=== PATIENT | female | born 1995 | race Caucasian/White ===

== ENCOUNTER → 2019-05-03 19:40 | Observation (INO) ==
[2019-05-03 17:41] LABS: Bilirubin,Urine Negative (Negative); Blood,Urine Negative (Negative); Clarity,Urine Cloudy (Clear); Color,Urine Yellow (Yellow); Glucose,Urine (UA) Normal (Normal); Ketones,Urine Negative (Negative); Leukocyte Esterase,Urine Negative (Negative); Nitrite,Urine Negative (Negative); Protein,Urine Trace mg/dL (Neg-Trace); Specific Gravity,Urine 1.028 (1.010-1.025); Urobilinogen,Urine Normal (Normal)
[2019-05-03 17:43] LABS: Bacteria,Urine Many per hpf (None-Few); Hyaline Casts,Urine Few per lpf (None-Few); Squamous Epithelial Cell,Urine Many per lpf (None-Few)
[2019-05-03 17:52] LABS: Calcium Oxalate Crystals,Urine Present
[2019-05-03 17:53] LABS: RBC,Urine 0-3 per hpf (0-3)
[2019-05-03 17:57] LABS: Amphetamine Screen,Urine Negative ng/mL (Cutoff=1000); Barbiturate Screen,Urine Negative ng/mL (Cutoff=200); Benzodiazepines Screen,Urine Negative ng/mL (Cutoff=200); Cannabinoid Screen,Urine Positive ng/mL (Cutoff = 50); Cocaine Screen,Urine Negative ng/mL (Cutoff= 300); Opiate Screen,Urine Negative ng/mL (Cutoff=300); Phencyclidine Screen,Urine Negative ng/mL (Cutoff=25)
[~2019-05-03 19:40] MED LIST: FLU Vac QV 19-20 (6Month+)/PF 0.5 ML SYRINGE IM ONE; Ringers Solution, Lactated 1,000 ML IVC ONE
== END | disposition home or self-care (01) ==
LOC: 1NENULAB
PROVIDERS: ADMIT Advanced Practice Midwife; ATTEND Advanced Practice Midwife

== ENCOUNTER → 2019-07-24 13:34 | Observation (INO) ==
[2019-07-24 12:37] LABS: Basophils % 0.2 %; Eosinophils % 0.4 %; Hematocrit 35.9 % (35.3-44.9); Hemoglobin 11.2 g/dL (11.5-15.4); Immature Granulocytes % 0.5 % (0-4); Lymphocytes # 2.6 K/mcL (0.6-4.6); Lymphocytes % 24.1 %; Mean Corpuscular HGB Conc 31.2 g/dL (31.6-35.5); Mean Corpuscular Hemoglobin 25.4 pg (28.0-33.3); Mean Corpuscular Volume 81.4 fL (83.0-100.0); Mean Platelet Volume 10.4 fL (9.4-12.4); Monocytes # 0.7 K/mcL (0.0-1.3); Neutrophils # 7.5 K/mcL (1.6-8.9); Platelet Count 258 K/mcL (140-400); Red Blood Count 4.41 M/mcL (3.82-4.97); Red Cell Distribution Width 15.2 % (11.5-14.5); Segmented Neutrophils % 68.8 %; White Blood Count 10.9 K/mcL (4.3-11.1)
[2019-07-24 12:47] LABS: Amphetamine Screen,Urine Negative ng/mL (Cutoff=1000); Barbiturate Screen,Urine Negative ng/mL (Cutoff=200); Benzodiazepines Screen,Urine Negative ng/mL (Cutoff=200); Cannabinoid Screen,Urine Negative ng/mL (Cutoff = 50); Cocaine Screen,Urine Negative ng/mL (Cutoff= 300); Creatinine,Urine 96 mg/dL; Opiate Screen,Urine Negative ng/mL (Cutoff=300); Phencyclidine Screen,Urine Negative ng/mL (Cutoff=25); Protein/Creatinine Ratio,Urine 0.23 mg/mg (0.00-0.20)
[2019-07-24 12:56] LABS: Alanine Aminotransferase 7 Units/L (7-52); Aspartate Amino Transferase 13 Units/L (13-39); BUN/Creatinine Ratio 15 (6-26); Blood Urea Nitrogen 9 mg/dL (6-20); Lactate Dehydrogenase 162 Units/L (140-271); Uric Acid 5.4 mg/dL (2.3-7.6); eGFR For African Americans > 60 (> 60); eGFR For Non-African Americans > 60 (> 60)
== END | disposition home or self-care (01) ==
LOC: 1NENULAB
PROVIDERS: ADMIT Advanced Practice Midwife; ATTEND Advanced Practice Midwife

== ENCOUNTER → 2019-08-02 20:33 | Observation (INO) ==
[~2019-08-02 20:33] MED LIST changes: +EPHEDrine 50 MG/ML VIAL IVP PRN; +Epidural Premix (fent/bupiv) 110 ML EP SCH; -FLU Vac QV 19-20 (6Month+)/PF 0.5 ML SYRINGE IM ONE; -Ringers Solution, Lactated 1,000 ML IVC ONE
== END | disposition home or self-care (01) ==
LOC: 1NENULAB
PROVIDERS: ADMIT Advanced Practice Midwife; ATTEND Advanced Practice Midwife

== ENCOUNTER 2019-08-07 04:00 | Inpatient (IN) ==
[2019-08-07] MEDS ORDERED: Lidocaine 1% 20 ML MDV INFILT PRN (04:34)
[2019-08-07] MEDS ORDERED: Famotidine 20 MG/2 ML VIAL IVP PRN (04:34)
[2019-08-07] MEDS ORDERED: miSOPROStoL 25 MCG TABLET VG PRN (04:34)
[2019-08-07] MEDS ORDERED: Naloxone 0.4 MG/ML INJ IVP PRN ×2 (04:34→09:33)
[2019-08-07] MEDS ORDERED: Metoclopramide 10 MG/2 ML VIAL IVP PRN (04:34)
[2019-08-07] MEDS ORDERED: Ondansetron 4 MG/2 ML VIAL IVP PRN (04:34)
[2019-08-07 05:06] LABS: Basophils % 0.2 %; Eosinophils % 0.4 %; Hematocrit 34.1 % (35.3-44.9); Hemoglobin 10.9 g/dL (11.5-15.4); Immature Granulocytes % 0.5 % (0-4); Lymphocytes # 2.8 K/mcL (0.6-4.6); Lymphocytes % 25.5 %; Mean Corpuscular Hemoglobin 25.9 pg (28.0-33.3); Mean Platelet Volume 10.7 fL (9.4-12.4); Monocytes # 0.6 K/mcL (0.0-1.3); Monocytes % 5.2 %; Neutrophils # 7.4 K/mcL (1.6-8.9); Platelet Count 263 K/mcL (140-400); Red Blood Count 4.21 M/mcL (3.82-4.97); Red Cell Distribution Width 15.4 % (11.5-14.5); Segmented Neutrophils % 68.2 %; White Blood Count 10.9 K/mcL (4.3-11.1)
[2019-08-07 05:13] LABS: Amphetamine Screen,Urine Negative ng/mL (Cutoff=1000); Barbiturate Screen,Urine Negative ng/mL (Cutoff=200); Benzodiazepines Screen,Urine Negative ng/mL (Cutoff=200); Cannabinoid Screen,Urine Negative ng/mL (Cutoff = 50); Cocaine Screen,Urine Negative ng/mL (Cutoff= 300); Opiate Screen,Urine Negative ng/mL (Cutoff=300); Phencyclidine Screen,Urine Negative ng/mL (Cutoff=25)
[2019-08-07 05:18] LABS: Alanine Aminotransferase 7 Units/L (7-52); Aspartate Amino Transferase 14 Units/L (13-39); BUN/Creatinine Ratio 15 (6-26); Blood Urea Nitrogen 10 mg/dL (6-20); Lactate Dehydrogenase 139 Units/L (140-271); Uric Acid 6.2 mg/dL (2.3-7.6); eGFR For African Americans > 60 (> 60); eGFR For Non-African Americans > 60 (> 60)
[2019-08-07 05:33] LABS: Protein/Creatinine Ratio,Urine 0.2 mg/mg (0.00-0.20)
[2019-08-07] MEDS ORDERED: miSOPROStoL 25 MCG TABLET PO STA (09:30)
[2019-08-07] MEDS: Ringers Solution, Lactated 1,000 ML IVC SCH ×3 (09:30→17:30)
[2019-08-07] MEDS ORDERED: *HR* FentaNYL (PF) 100 MCG/2 ML VIAL IVP PRN (09:33)
[2019-08-07] MEDS ORDERED: *HR* FentaNYL (PF) 100 MCG/2 ML VIAL ONE ×2 (12:01→21:12)
[2019-08-07] MEDS ORDERED: Bupivacaine-MPF 0.25% 10 ML VIAL ONE ×3 (12:01→21:12)
[2019-08-07] MEDS ORDERED: Epidural Premix (fent/bupiv) 110 ML EP ONE (12:02)
[2019-08-07] MEDS ORDERED: EPHEDrine 50 MG/ML VIAL IVP PRN (12:53)
[2019-08-07] MEDS ORDERED: Epidural Premix (fent/bupiv) 110 ML EP SCH (13:00)
[2019-08-07] MEDS ORDERED: Famotidine 20 MG/2 ML VIAL IVP ONE (13:50)
[2019-08-07] MEDS ORDERED: Oxytocin 20 units/ LR 1000 mL 20 UNIT/1,000 ML BAG IVC SCH (14:00)
[2019-08-07] MEDS ORDERED: Famotidine 20 MG/2 ML VIAL ONE (23:19)
[2019-08-07] MEDS ORDERED: Lidocaine/EPI 1:200k 2% PF 20 ML VIAL ONE (23:30)
[2019-08-07] MEDS ORDERED: *HR* Oxytocin 10 UNIT/ML VIAL IM ONE (23:31)
[2019-08-07] MEDS ORDERED: ceFAZolin 3,000 MG in 0.9 % Sodium Chloride 100 ML IVPB ONE (23:39)
[2019-08-07] MEDS ORDERED: Ringers Solution, Lactated 1,000 ML ONE (23:59)
[2019-08-08] MEDS ORDERED: *HR* Propofol 200 MG/20 ML VIAL IVP ONE (00:05)
[2019-08-08] MEDS ORDERED: *HR* Succinylcholine 200 MG/10 ML VIAL IVP ONE (00:06)
[2019-08-08] MEDS ORDERED: Ondansetron 4 MG/2 ML VIAL ONE (00:17)
[2019-08-08] MEDS ORDERED: Dexamethasone 4 MG/ML VIAL ONE (00:17)
[2019-08-08] MEDS ORDERED: *HR* Promethazine 25 MG/ML VIAL IVP PRN (00:24)
[2019-08-08] MEDS ORDERED: Acetaminophen IV 1,000 MG/100 ML INFUS..BTL IVPB STA (00:24)
[2019-08-08] MEDS ORDERED: *HR* HYDROmorphone 2 MG TABLET PO PRN (00:24)
[2019-08-08] MEDS ORDERED: *HR* Labetalol 20 MG/4 ML SYRINGE IVP PRN (00:24)
[2019-08-08] MEDS ORDERED: *HR* HYDROmorphone (PF) 1 MG/ML SYRINGE IVP PRN (00:24)
[2019-08-08] MEDS ORDERED: *HR* OxyCODONE Immed Rel 5 MG TABLET PO PRN (00:24)
[2019-08-08] MEDS ORDERED: *HR* Oxytocin 10 UNIT/ML VIAL IM ONE (00:45)
[2019-08-08] MEDS ORDERED: Ringers Solution, Lactated 1,000 ML ONE (00:45)
[2019-08-08] MEDS ORDERED: Diphenoxylate/Atropine 1 TAB TABLET PO ONE (01:11)
[2019-08-08] MEDS ORDERED: Simethicone 80 MG TAB.CHEW PO PRN (04:13)
[2019-08-08] MEDS ORDERED: Ondansetron 4 MG/2 ML VIAL IVP PRN (04:13)
[2019-08-08] MEDS ORDERED: Sennosides 8.6 MG TABLET PO PRN (04:13)
[2019-08-08] MEDS ORDERED: Oxytocin 20 units/ LR 1000 mL 20 UNIT/1,000 ML BAG IVC SCH (04:13)
[2019-08-08] MEDS ORDERED: Metoclopramide 10 MG/2 ML VIAL IVP PRN (04:13)
[2019-08-08] MEDS ORDERED: Ringers Solution, Lactated 1,000 ML IVC SCH (04:13)
[2019-08-08] MEDS ORDERED: Rho Immune Globulin 1,500 UNIT SYRINGE IM ONE (04:13)
[2019-08-08] MEDS: cephALEXin 500 MG CAPSULE PO SCH ×3 (08:06→20:28)
[2019-08-08] MEDS: metroNIDAZOLE 500 MG TABLET PO SCH ×3 (08:06→20:27)
[2019-08-08] MEDS: *HR* OxyCODONE/APAP 5/325 TABLET PO PRN ×4 (08:07→22:57)
[2019-08-08] MEDS ORDERED: NON-FORMULARY MEDICATION 1 EACH EACH (Prenatal Vits96/Iron Fum/Folic [Prenatal Tablet] 1 E PO SCH (09:00)
[2019-08-08 09:03] LABS: Basophils % 0.1 %; Hemoglobin 8.5 g/dL (11.5-15.4); Immature Granulocytes % 0.4 % (0-4); Lymphocytes # 1.8 K/mcL (0.6-4.6); Lymphocytes % 13.4 %; Mean Corpuscular HGB Conc 32.7 g/dL (31.6-35.5); Mean Corpuscular Hemoglobin 25.6 pg (28.0-33.3); Mean Corpuscular Volume 78.3 fL (83.0-100.0); Mean Platelet Volume 10.2 fL (9.4-12.4); Monocytes # 0.6 K/mcL (0.0-1.3); Monocytes % 4.8 %; Neutrophils # 10.6 K/mcL (1.6-8.9); Platelet Count 232 K/mcL (140-400); Red Blood Count 3.32 M/mcL (3.82-4.97); Red Cell Distribution Width 15.5 % (11.5-14.5); Segmented Neutrophils % 81.3 %
[2019-08-08] MEDS ORDERED: miSOPROStoL 100 MCG TABLET PO ONE (09:54)
[2019-08-08] MEDS: Ibuprofen 600 MG TABLET PO PRN ×2 (09:57→20:29)
[2019-08-08] MEDS: Prenatal Vit/FA 1 EACH TABLET PO SCH (12:21)
[2019-08-08] MEDS ORDERED: GuaiFENesin Liq 200 MG/10 ML UDC PO PRN (12:22)
[2019-08-08] MEDS ORDERED: Fluticasone Propionate Nasal 50 MCG/SPRAY BOTTLE NS SCH (19:00)
[2019-08-09] MEDS: Ibuprofen 600 MG TABLET PO PRN ×3 (03:33→17:22)
[2019-08-09 06:03] LABS: Basophils % 0.2 %; Eosinophils % 0.2 %; Hematocrit 21.4 % (35.3-44.9); Immature Granulocytes % 0.3 % (0-4); Lymphocytes # 2.2 K/mcL (0.6-4.6); Lymphocytes % 24.1 %; Mean Corpuscular HGB Conc 30.8 g/dL (31.6-35.5); Mean Corpuscular Hemoglobin 25.7 pg (28.0-33.3); Mean Corpuscular Volume 83.3 fL (83.0-100.0); Mean Platelet Volume 9.9 fL (9.4-12.4); Monocytes # 0.6 K/mcL (0.0-1.3); Neutrophils # 6.2 K/mcL (1.6-8.9); Platelet Count 206 K/mcL (140-400); Red Blood Count 2.57 M/mcL (3.82-4.97); Red Cell Distribution Width 15.8 % (11.5-14.5); Segmented Neutrophils % 68.2 %; White Blood Count 9.1 K/mcL (4.3-11.1)
[2019-08-09 06:06] LABS: Hemoglobin 6.6 g/dL (11.5-15.4)
[2019-08-09] MEDS: *HR* OxyCODONE/APAP 5/325 TABLET PO PRN ×4 (07:34→21:58)
[2019-08-09] MEDS: metroNIDAZOLE 500 MG TABLET PO SCH ×3 (07:34→20:59)
[2019-08-09] MEDS: cephALEXin 500 MG CAPSULE PO SCH ×3 (07:34→20:59)
[2019-08-09] MEDS: Prenatal Vit/FA 1 EACH TABLET PO SCH (07:35)
[2019-08-09] MEDS ORDERED: 0.9 % Sodium Chloride 500 ML ONE (09:23)
[2019-08-09 22:25] LABS: Basophils % 0.2 %; Eosinophils % 0.4 %; Hematocrit 29.2 % (35.3-44.9); Immature Granulocytes % 0.8 % (0-4); Lymphocytes # 2.5 K/mcL (0.6-4.6); Lymphocytes % 21.9 %; Mean Corpuscular HGB Conc 32.9 g/dL (31.6-35.5); Mean Corpuscular Hemoglobin 26.4 pg (28.0-33.3); Mean Corpuscular Volume 80.4 fL (83.0-100.0); Monocytes # 0.7 K/mcL (0.0-1.3); Monocytes % 6.3 %; Neutrophils # 7.9 K/mcL (1.6-8.9); Platelet Count 281 K/mcL (140-400); Red Blood Count 3.63 M/mcL (3.82-4.97); Red Cell Distribution Width 15.8 % (11.5-14.5); Segmented Neutrophils % 70.4 %; White Blood Count 11.2 K/mcL (4.3-11.1)
[2019-08-09 22:27] LABS: Hemoglobin 9.6 g/dL (11.5-15.4)
[2019-08-10] MEDS: *HR* OxyCODONE/APAP 5/325 TABLET PO PRN ×2 (03:39→08:39)
[2019-08-10 06:59] LABS: Hemoglobin 8.9 g/dL (11.5-15.4); Mean Corpuscular Hemoglobin 26.3 pg (28.0-33.3); Mean Corpuscular Volume 79.6 fL (83.0-100.0); Mean Platelet Volume 9.4 fL (9.4-12.4); Platelet Count 251 K/mcL (140-400); Red Blood Count 3.39 M/mcL (3.82-4.97); Red Cell Distribution Width 15.8 % (11.5-14.5); White Blood Count 9.4 K/mcL (4.3-11.1)
[2019-08-10] MEDS: Prenatal Vit/FA 1 EACH TABLET PO SCH (07:35)
[2019-08-10] MEDS: Ibuprofen 600 MG TABLET PO PRN (07:36)
[2019-08-10 07:49] VITALS: BP 128/75
== END 2019-08-10 13:30 | disposition home or self-care (01) | DRG 540 ==
LOC: 1NENULAB 04:32 → 1NENUOBS 08-08 04:12
PROVIDERS: ADMIT Student in an Organized Health Care Education/Training Program; ATTEND Student in an Organized Health Care Education/Training Program

== ENCOUNTER 2019-08-24 17:00 | Observation (INO) ==
[2019-08-24] MEDS ORDERED: Isovue-370 500 ML BOTTLE IVP ONE (18:08)
[2019-08-24] MEDS ORDERED: 0.9 % Sodium Chloride 1,000 ML IVC ONE (18:09)
[2019-08-24] MEDS ORDERED: Acetaminophen 325 MG TABLET PO ONE (18:09)
[2019-08-24 18:55] LABS: INR 1.1; Prothrombin Time 12.3 Seconds (9.4-12.1)
[2019-08-24 18:58] LABS: Activated Partial Thrombo Time 32.6 Seconds (26.0-36.0)
[2019-08-24 19:02] LABS: Bilirubin,Urine Negative (Negative); Blood,Urine Large (Negative); Clarity,Urine Clear (Clear); Color,Urine Yellow (Yellow); Glucose,Urine (UA) Normal (Normal); Ketones,Urine Trace mg/dL (Negative); Leukocyte Esterase,Urine Small (Negative); Nitrite,Urine Negative (Negative); PH,Urine 5.5 pH Units (5.0-8.0); Protein,Urine 30 mg/dL (Neg-Trace); Specific Gravity,Urine > 1.030 (1.010-1.025); Urobilinogen,Urine Normal (Normal)
[2019-08-24 19:05] LABS: Bacteria,Urine None Seen per hpf (None-Few); Hyaline Casts,Urine Moderate per lpf (None-Few); Squamous Epithelial Cell,Urine Many per lpf (None-Few); WBC,Urine 15-30 per hpf (0-3)
[2019-08-24 19:06] LABS: Alanine Aminotransferase 12 Units/L (7-52); Albumin/Globulin Ratio 1.1 (1.1-2.2); Alkaline Phosphatase 75 Units/L (34-104); Aspartate Amino Transferase 10 Units/L (13-39); BUN/Creatinine Ratio 17 (6-26); Basophils % 0.3 %; Bilirubin,Direct 0.1 mg/dL (0.0-0.2); Bilirubin,Indirect 0.3 mg/dL (0.0-1.0); Bilirubin,Total 0.4 mg/dL (0.3-1.0); Blood Urea Nitrogen 12 mg/dL (6-20); Calcium 9.5 mg/dL (8.6-10.3); Carbon Dioxide 27 mEq/L (23-29); Chloride 103 mEq/L (98-107); Eosinophils % 0.3 %; Globulin 3.5 g/dL (2.4-3.5); Glucose 98 mg/dL (70-105); Hematocrit 35.4 % (35.3-44.9); Hemoglobin 10.7 g/dL (11.5-15.4); Immature Granulocytes % 0.2 % (0-4); Lymphocytes % 21.3 %; Mean Corpuscular HGB Conc 30.2 g/dL (31.6-35.5); Mean Corpuscular Hemoglobin 25.1 pg (28.0-33.3); Mean Corpuscular Volume 82.9 fL (83.0-100.0); Mean Platelet Volume 9.3 fL (9.4-12.4); Monocytes # 0.6 K/mcL (0.0-1.3); Neutrophils # 6.8 K/mcL (1.6-8.9); Osmolality,Calculated 286 (280-300); Platelet Count 323 K/mcL (140-400); Potassium 3.8 mEq/L (3.5-5.1); Red Blood Count 4.27 M/mcL (3.82-4.97); Segmented Neutrophils % 71.9 %; Sodium 138 mEq/L (136-145); Total Protein 7.5 g/dL (6.4-8.9); White Blood Count 9.4 K/mcL (4.3-11.1); eGFR For African Americans > 60 (> 60); eGFR For Non-African Americans > 60 (> 60)
[2019-08-24] MEDS ORDERED: Morphine Sulfate 2 MG/ML SYRINGE IVP ONE (19:24)
[2019-08-24] MEDS ORDERED: Piperacillin/Tazobactam 3.375 GM in 0.9 % Sodium Chloride Mini Bag 100 ML IVPB ONE (20:16)
[2019-08-24] MEDS ORDERED: Naloxone 0.4 MG/ML INJ IVP PRN (22:28)
[2019-08-25 04:36] LABS: Basophils % 0.2 %; Eosinophils # 0.1 K/mcL (0.0-0.6); Eosinophils % 0.9 %; Hematocrit 31.5 % (35.3-44.9); Hemoglobin 9.5 g/dL (11.5-15.4); Immature Granulocytes % 0.3 % (0-4); Lymphocytes # 2.2 K/mcL (0.6-4.6); Lymphocytes % 23.3 %; Mean Corpuscular HGB Conc 30.2 g/dL (31.6-35.5); Mean Corpuscular Hemoglobin 25.2 pg (28.0-33.3); Mean Corpuscular Volume 83.6 fL (83.0-100.0); Mean Platelet Volume 9.7 fL (9.4-12.4); Monocytes # 0.7 K/mcL (0.0-1.3); Monocytes % 7.5 %; Neutrophils # 6.3 K/mcL (1.6-8.9); Platelet Count 285 K/mcL (140-400); Red Blood Count 3.77 M/mcL (3.82-4.97); Red Cell Distribution Width 15.2 % (11.5-14.5); Segmented Neutrophils % 67.8 %; White Blood Count 9.3 K/mcL (4.3-11.1)
[2019-08-25 04:55] LABS: BUN/Creatinine Ratio 16 (6-26); Blood Urea Nitrogen 12 mg/dL (6-20); Carbon Dioxide 27 mEq/L (23-29); Chloride 107 mEq/L (98-107); Glucose 108 mg/dL (70-105); Osmolality,Calculated 288 (280-300); Potassium 3.4 mEq/L (3.5-5.1); Sodium 139 mEq/L (136-145); eGFR For African Americans > 60 (> 60); eGFR For Non-African Americans > 60 (> 60)
[2019-08-25] MEDS: BREAST PUMP MC SCH ×2 (07:29→19:34)
[2019-08-25] MEDS: Prenatal Vit/FA 1 EACH TABLET PO SCH (08:38)
[2019-08-25] MEDS: Ampicillin/Sulbactam 1,500 MG in 0.9 % Sodium Chloride Mini Bag 100 ML IVPB SCH ×4 (08:39→23:46)
[2019-08-25] MEDS: 0.9 % Sodium Chloride 1,000 ML IVC SCH ×2 (08:40→17:52)
[2019-08-25] MEDS ORDERED: NON-FORMULARY MEDICATION 1 EACH EACH (Prenatal Vits96/Iron Fum/Folic [Prenatal Tablet] 1 E PO SCH (09:00)
[2019-08-25] MEDS ORDERED: Ibuprofen 600 MG TABLET PO PRN (09:50)
[2019-08-25] MEDS: *HR* OxyCODONE/APAP 5/325 TABLET PO PRN ×2 (11:10→17:48)
[2019-08-25] MEDS ORDERED: Potassium Chloride Elixir 20 MEQ/15 ML UDC PO ONE (12:22)
[2019-08-25] MEDS: Sulfamethoxazole/Trimeth DS 1 EACH TABLET PO SCH (19:35)
[2019-08-26 04:37] LABS: Basophils % 0.4 %; Eosinophils # 0.1 K/mcL (0.0-0.6); Eosinophils % 1.1 %; Hematocrit 31.3 % (35.3-44.9); Hemoglobin 9.4 g/dL (11.5-15.4); Immature Granulocytes % 0.3 % (0-4); Lymphocytes # 2.4 K/mcL (0.6-4.6); Mean Corpuscular Hemoglobin 25.1 pg (28.0-33.3); Mean Corpuscular Volume 83.5 fL (83.0-100.0); Mean Platelet Volume 9.4 fL (9.4-12.4); Monocytes # 0.5 K/mcL (0.0-1.3); Monocytes % 6.9 %; Neutrophils # 4.2 K/mcL (1.6-8.9); Platelet Count 262 K/mcL (140-400); Red Blood Count 3.75 M/mcL (3.82-4.97); Red Cell Distribution Width 14.9 % (11.5-14.5); Segmented Neutrophils % 58.3 %; White Blood Count 7.1 K/mcL (4.3-11.1)
[2019-08-26 05:01] LABS: BUN/Creatinine Ratio 13 (6-26); Blood Urea Nitrogen 9 mg/dL (6-20); Calcium 8.6 mg/dL (8.6-10.3); Carbon Dioxide 23 mEq/L (23-29); Chloride 109 mEq/L (98-107); Glucose 91 mg/dL (70-105); Osmolality,Calculated 286 (280-300); Potassium 3.7 mEq/L (3.5-5.1); Sodium 139 mEq/L (136-145); eGFR For African Americans > 60 (> 60); eGFR For Non-African Americans > 60 (> 60)
[2019-08-26] MEDS: Ampicillin/Sulbactam 1,500 MG in 0.9 % Sodium Chloride Mini Bag 100 ML IVPB SCH (05:53)
[2019-08-26] MEDS: *HR* OxyCODONE/APAP 5/325 TABLET PO PRN (06:35)
[2019-08-26] MEDS: Prenatal Vit/FA 1 EACH TABLET PO SCH (07:22)
[2019-08-26] MEDS: Sulfamethoxazole/Trimeth DS 1 EACH TABLET PO SCH (07:23)
[2019-08-26 10:47] VITALS: BP 117/78
== END 2019-08-26 12:46 | disposition home or self-care (01) ==
LOC: EMEROOARM 17:00 → 2ANU 17:00 → SUATTDRO 22:40 → 2ANU 23:22
PROVIDERS: ADMIT Internal Medicine; ATTEND Internal Medicine